=== PATIENT | female | born 1950 | race Caucasian/White ===

== ENCOUNTER 2016-06-09 08:16 | Inpatient (IN) | payer MEDICARE, OTHER ==
--- NOTE | 2016-06-08 13:59 | HP ---
DATE OF CLINIC: 05/27/2016 JAYNA REYES : 1950 PLANNED PROCEDURE: Left Total Knee Arthroplasty DATE OF SURGERY: June 09, 2016 SURGEON: Derrick Mckenzie M.D. PCP: Italo Tanner M.D. HISTORY OF PRESENT ILLNESS Jayna Reyes is a 65 year old female. * Medication list reviewed with patient allergy list reviewed with patient. * Has not tried NSAIDS * Has not tried Physical Therapy * Has not tried Injections Mrs. Reyes is in today pre-operatively for her upcoming left total knee arthroplasty with Dr. Mckenzie on 06/09/16. Patient presents in good spirits and is prepared to proceed. She states she continues to have urinary tract symptoms despite completing a 5 day course of Bactrim. She denies fever or constitutional symptoms. She also states she takes 2 Tums 3-4 weekly in the evening for acid reflux. No other recent illness or change in health. No prior surgical complications. Her previous consult with Dr. Mckenzie follows: 65-year-old female here preoperatively with respect to chronic atraumatic left knee pain over the last 15 years. She has intermittent severity of symptomatology. Pain is primarily weightbearing, although has rest discomfort, no radicular pain, no hip pain, no problems with the contralateral side. She feels very limited with respect to activities and is interested in consideration of treatment algorithm. Comorbidities include insulin dependent diabetes as well as a history of hypertension and a remote history of gout. We discussed both operative and non-operative management, including risks and benefits of both and she has elected to proceed with surgical intervention. She presents today preoperatively. She has had no recent illnesses. CURRENT MEDICATION * Adult Aspirin EC Low Strength 81 MG Tablet Delayed Release 1 once a day 0 days, 0 refills * Invokana 100 MG Tablet 1 once a day 0 days, 0 refills * Lantus 100 UNIT/ML Solution as directed 90 days, 0 refills * Lisinopril 5 MG Tablet 1 once a day 0 days, 0 refills * Lovastatin 40 MG Tablet 1 once a day 0 days, 0 refills * Melatonin 5 MG Tablet as needed 0 days, 0 refills * MetFORMIN HCl 1000 MG Tablet 1 twice a day 90 days, 0 refills * Tums 500 MG Tablet Chewable as directed 0 days, 0 refills PAST MEDICAL/SURGICAL HISTORY Reported: Shoulder Arthroscopy Right 01/22/2009 Subacromial decompression with bicep debridement by Dr. Derrick Vega at [facility]. Medical: Cholesterol problems. Stomach problems ulcers at age 12, joint problems Arthritis, a fracture left arm and broke foot, Reported numbness, Reported tingling, Diabetes Mellitus, history of Arthritis knee, Gout many years ago, Hypertension, and Fainting. Surgical / Procedural: Appendix removed 50 years ago Eye Surgery Cataract-Bilateral. Tests: Blood pressure was high. Diagnoses: Diabetes mellitus. Anemia [id number]. Surgical: * Surgery of the pharynx, adenoids, and tonsils Retina 2006; hand tendon 1968 SOCIAL HISTORY Behavioral: Quit smoking stopped 35 years ago after smoking 1 pack a day for 5 years. Smoking status: Former smoker. Work: Occupation retired. ALLERGIES * No Known Allergies REVIEW OF SYSTEMS Systemic: No fever and no recent weight change. Head: No head symptoms. Cardiovascular: No cardiovascular symptoms. Pulmonary: No pulmonary symptoms. Gastrointestinal: Gastrointestinal symptoms GERD. : urgency, bloating, bladder discomfort. Psychological: No psychological symptoms. Skin: No skin lesions and no rash. PHYSICAL FINDINGS * Vitals taken 05/27/2016 01:29 pm BP-Sitting L 130/70 mmHg 100 - 120/56 - 80 BP Cuff Size Regular Pulse Rate-Sitting 92 bpm 50 - 100 Temp-Oral 97.3 F 96 - 101 Height 65.75 in 59 - 68 Weight 178 lbs 96 - 178 Body Mass Index 28.9 kg/m2 Body Surface Area 1.90 m2 Pain Level 2 Ears, Nose, Throat: * ENT: normal. Lungs: * Clear to auscultation. Cardiovascular: Heart Rate and Rhythm: * Normal. Abdomen: * Normal. Neurological: Motor: * Dominant Hand = Right Hand. Patient is a well-developed, well-nourished female in no acute distress, normal-appearing mood and affect. She has a stiff-legged, antalgic gait favoring the left side holding it in slight flexion. Left knee exam shows skin integrity to be well-preserved, no wounds, rashes or lesions. She does have mild diffuse swelling, no gross effusion. Motion actively is 5-95, passively 0-100 degrees with pain at extremes. On standing she has genu varum and has 1+ laxity to varus stress in 30 degrees of flexion. She is NT laterally, minimal discomfort on patellar compression with no crepitation. She has a negative drawer. She is tender over the anteromedial proximal tibia. Calf is soft and NT. Distal light touch sensation and motor function are grossly intact and symmetric with the contralateral side. Pulses are palpable. Gentle rotation of the hip is non-irritable. Sitting SLR is negative. Contralateral knee shows non-irritable motion, 0-115 degrees with overall reasonable alignment and no focal periarticular tenderness. TESTS Radiographs, 4 views of the left knee, from today show marked varus deformity with complete medial joint space loss, erosion of the proximal medial tibia, periarticular sclerosis and large medial osteophytes. Significant patellofemoral degenerative changes noted as well with large spur off the proximal trochlea. ASSESSMENT * Localized primary osteoarthritis of the left knee Advanced DJD, left knee, with varus deformity. PREVIOUS TESTS * Test: URINALYSIS WITH MICROSCOPIC Report Date: 05/20/2016 EPITHELIAL CELL 0-1 WBC 50-60 GLUCOSE 2+ BACTERIA 1+ PH,URINE 5.0 SPEC. GRAVITY 1.020 KETONE NEGATIVE NITRITE NEGATIVE RBC 0-1 BLOOD TRACE BILIRUBIN NEGATIVE APPEARANCE HAZY PROTEIN TRACE COLOR YELLOW LEUK ESTERASE 2+ UROBILINOGEN NORMAL * Test: CBC WITH DIFF Report Date: 05/20/2016 WBC 7.3 10*3/mL BASOPHIL 0.8 % RBC 4.72 10*6/uL NEUTROPHILS 61.6 % MCH 29.4 pg MCHC 33.3 g/dL RDW 12.4 % MCV 88.3 fL PLATELET COUNT 162 10*3/mL IMM NEUT % 0.3 % IMM NEUT # 0.0 10*3/mL MONOCYTES 6.1 % EOSINOPHIL 2.6 % HCT 41.7 % HGB 13.9 g/L LYMPHOCYTE 28.6 % ANC 4.5 10*3/mL * Test: PROTHROMBIN TIME Report Date: 05/20/2016 PROTIME 10.5 s INR 1.00 * Test: PARTIAL THROMBOPLASTIN TIME Report Date: 05/20/2016 APTT 22.6 s Low * Test: COMPREHENSIVE METABOLIC PANEL Report Date: 05/20/2016 ALT/SGPT 16 U/L ALBUMIN 4.2 g/dL ALB/GLOB RATIO 1.5 BUN 17 mg/dL BUN/CREAT RATIO 21 High CALCIUM 9.3 mg/dL GLUCOSE 167 mg/dL High CREATININE 0.8 mg/dL SODIUM 138 meq/L POTASSIUM 4.5 meq/L CHLORIDE 104 meq/L CARBON DIOXIDE 26 meq/L ANION GAP 13 meq/L TOT PROTEIN 7.0 g/dL GLOBULIN 2.8 g/dL BILI,TOTAL 0.4 mg/dL AST/SGOT 17 U/L ALK PHOSPHATASE 47 U/L GFR 72 * Test: LIPID PROFILE Report Date: 05/20/2016 HDL CHOLESTEROL 44 mg/dL VLDL CHOL 42 mg/dL High CHOLESTEROL 163 mg/dL TRIGLYCERIDES 210 mg/dL High LDL CHOLESTEROL 77 mg/dL RISK RATIO 3.7 * Test: GLYCOHEMOGLOBIN Report Date: 05/20/2016 HGBA1C 8.2 % High * Test: URINE CULTURE Report Date: 05/25/2016 URINE CULTURE 50,000 CFU/ML STAPHYLOCOCCUS EPIDERMIDIS (COAGULASE NEGATIVE * Test: MRSA SCREEN Report Date: 05/21/2016 MRSA SCREEN NEGATIVE * Test: MSSA SCREEN Report Date: 05/21/2016 MSSA SCREEN NEGATIVE FOR STAPHYLOCOCCUS AUREUS * Test: GRAM POS SENSITIVITIES (JUAN LUIS) Report Date: 05/25/2016 GRAM POS SENSITIVITIES (JUAN LUIS) STAPH) R THERAPY * Patient fall risk screen negative. * Patient eligible for fall risk assessment. * Patient received fall risk assessment. PLAN * Unilateral primary osteoarthritis, left knee Physical Therapy: PT [facility] [phone] * OTHER Macrobid 100 MG CAPS, 1 twice a day, 7 days, 0 refills * Aftercare following joint replacement surgery OxyCODONE HCl 5 MG TABS, 1or 2 tablets every 4 to 6 hours as needed, 5 days, 0 refills OxyCONTIN 10 MG T12A, 1 twice a day, 10 days, 0 refills TraMADol HCl 50 MG TABS, four times a day, 10 days, 0 refills CeleBREX 100 MG CAPS, 1 twice a day, 10 days, 0 refills * Total knee arthroplasty -Left Discussed with patient in detail the limitations, expectations as well as risks and possible complications of surgery including, but not limited to wound problems or infection, neurovascular injury, continued knee pain or dysfunction, including the possibility of prosthetic wear or failure over time that may require additional operative or non-operative treatment. Patient also realizes the perioperative risks including risks associated with anesthesia and would like to proceed. A full PAR conference was held, questions and concerns addressed and informed consent was obtained. Patient will be sent from my office for completion of the preoperative workup. Macrobid 100mg BID x 7 days for UTI [place] consult for perioperative medical management. Patient will use aspirin 325mg daily for 6 weeks postoperatively for DVT prophylaxis. Patient would like to perform their postop PT at [facility] with left total knee arthroplasty protocol. CARE TEAM Italo Tanner MD Family Practice CC: Italo Tanner MD [facility] RS/sg
[2016-06-09] MEDS ORDERED: CEFAZOLIN SODIUM 2 GRAM DUPLEX 50 ML IV PRN (10:45)
[2016-06-09] MEDS ORDERED: FAMOTIDINE 20 MG TABLET PO ONE (10:45)
[2016-06-09] MEDS ORDERED: TRANEXAMIC ACID 1,000 MG in SODIUM CHLORIDE 0.9% 100 ML IV PRN (10:45)
[2016-06-09] MEDS ORDERED: POLYMYXIN B SULFATE 500,000 UNITS, BACITRACIN 25,000 UNITS in SODIUM CHLORIDE 3 L IRRIG... IR PRN (10:45)
[2016-06-09] MEDS ORDERED: BUPIVACAINE 0.25% (MDV) 20 ML in SODIUM CHLORIDE 0.9% FLUSH 20 ML IF PRN (10:45)
[2016-06-09] MEDS ORDERED: CELECOXIB 200 MG CAPSULE PO ONE (10:45)
[2016-06-09] MEDS ORDERED: GABAPENTIN 600 MG TABLET PO ONE (10:45)
[2016-06-09] MEDS ORDERED: CLONIDINE HCL 0.1 MG/24 HR (7 DAY PATCH) TD SCH (10:45)
[2016-06-09] MEDS ORDERED: TRAMADOL HCL 50 MG TABLET PO ONE (10:45)
[2016-06-09] MEDS ORDERED: ONDANSETRON 4 MG/2ML 2 ML VIAL IV ONE (10:45)
[2016-06-09] MEDS ORDERED: OXYCODONE HCL 10 MG TAB.SR PO ONE ×2 (10:45→11:12)
[2016-06-09] MEDS ORDERED: BUPIVACAINE 0.25% (MDV) 24 ML, MORPHINE SULFATE 8 MG, EPINEPHRINE 0.3 MG in SODIUM CHLO... IF PRN (10:45)
[2016-06-09] MEDS ORDERED: PROPOFOL 40 ML IV ONE (10:56)
[2016-06-09] MEDS ORDERED: LIDOCAINE 2% (PRES FREE) 5 ML VIAL ONE (10:56)
[2016-06-09] MEDS ORDERED: FENTANYL 100 MCG/2 ML VIAL ONE (11:00)
[2016-06-09] MEDS ORDERED: MIDAZOLAM HCL 5 MG/5 ML VIAL ONE (11:01)
[2016-06-09] MEDS ORDERED: TRAMADOL HCL 50 MG TABLET ONE (11:12)
[2016-06-09] MEDS ORDERED: ONDANSETRON 4 MG/2ML 2 ML VIAL ONE (11:12)
[2016-06-09] MEDS ORDERED: CELECOXIB 200 MG CAPSULE ONE (11:13)
[2016-06-09] MEDS ORDERED: CLONIDINE HCL 0.1 MG/24 HR (7 DAY PATCH) TD ONE (11:13)
[2016-06-09] MEDS ORDERED: IV START KIT ONE (11:13)
[2016-06-09] MEDS ORDERED: GABAPENTIN 600 MG TABLET ONE (11:13)
[2016-06-09] MEDS ORDERED: FAMOTIDINE 20 MG TABLET ONE (11:13)
[2016-06-09] MEDS ORDERED: SODIUM CHLORIDE 0.9% 1,000 ML ONE (11:14)
[2016-06-09] MEDS ORDERED: CEFAZOLIN SODIUM 2 GRAM PREMIX 100 ML IV ONE (11:21)
[2016-06-09] MEDS ORDERED: SPINAL PROCEDURAL TRAY 1 EACH ONE (12:04)
[2016-06-09] MEDS ORDERED: NERVE BLOCK PROCEDURAL TRAY 1 EACH ONE (12:04)
[2016-06-09] MEDS ORDERED: ROPIVACAINE 0.5% 30 ML VIAL ONE (12:04)
[2016-06-09] MEDS ORDERED: ATROPINE SULFATE 0.4 MG/1 ML VIAL IV PRN (13:57)
[2016-06-09] MEDS ORDERED: HYDRALAZINE HCL 20 MG/1 ML VIAL IV PRN (13:57)
[2016-06-09] MEDS ORDERED: FENTANYL 100 MCG/2 ML VIAL IV PRN (13:57)
[2016-06-09] MEDS ORDERED: LABETALOL HCL 5 MG/ML 20ML VIAL IV PRN (13:57)
[2016-06-09] MEDS ORDERED: MEPERIDINE 25 MG/ML SYRINGE IV PRN (13:57)
[2016-06-09] MEDS ORDERED: PROMETHAZINE HCL 25 MG/ML VIAL IM PRN (13:57)
[2016-06-09] MEDS ORDERED: HYDROMORPHONE HCL 1 MG/ML SYRINGE IV PRN (13:57)
[2016-06-09] MEDS ORDERED: NALOXONE HCL 0.4 MG/ML VIAL IV PRN (13:57)
[2016-06-09] MEDS ORDERED: ONDANSETRON 4 MG/2ML 2 ML VIAL IV PRN ×2 (13:57→16:40)
[2016-06-09] MEDS ORDERED: PHENYLEPHRINE 10 MG/1 ML (1%) VIAL ONE (13:58)
[2016-06-09] MEDS ORDERED: LACTATED RINGERS 1,000 ML IV SCH (14:00)
[2016-06-09] MEDS ORDERED: ON-Q PUMP/ROPIVACAINE 0.2% 450 ML in PREMIX BAG 1 EACH NB PRN ×2 (14:01→16:40)
[2016-06-09] MEDS ORDERED: ON-Q PUMP/ROPIVACAINE 0.2% 450 ML ONE (15:17)
--- NOTE | 2016-06-09 16:05 | PCMBPN ---
Brief Post Op Note: Date of Procedure: 06/09/16 ] Preoperative Diagnosis: left knee DJD Postoperative Diagnosis: 1. [Same] Procedure: left TKA Surgeon: Derrick Mckenzie MD Assist:Javed (JOSE) Anesthesia: spinal/add block (Steve) Condition: stable to PAR Complications: none IV Fluids: 1700 mls Urine Output: 250 mLs Estimated Blood Loss: 150 mLs Tourniquet Time: ~60 Specimens: [N/A] Implants: Legion Drains: none
[2016-06-09] MEDS ORDERED: KETOROLAC TROMETHAMINE 30 MG/ML 1 ML VIAL IV PRN (16:40)
[2016-06-09] MEDS ORDERED: HYDROMORPHONE HCL 0.5 MG/0.5 ML SYRINGE IV PRN (16:40)
[2016-06-09] MEDS ORDERED: CALCIUM CARBONATE 500 MG TAB.CHEW PO PRN (16:40)
--- NOTE | 2016-06-09 16:56 | RAD ---
KNEE LEFT 1 OR 2 VIEWS COMPARISON: Left lower study bone length study, 04/03/2016 HISTORY: Osteoarthritis left knee after left total knee arthroplasty. FINDINGS: Views: Left knee AP and crosstable lateral Bones: Normal. Joints: Satisfactory appearance of the left total knee arthroplasty. Soft tissues: Normal. IMPRESSION: Satisfactory appearance of the left total knee arthroplasty.
[2016-06-09 17:10] VITALS: BMI 29.5
[2016-06-09] MEDS ORDERED: PUMP TUBING ONE (17:27)
[2016-06-09] MEDS: NS/Potassium Chlor 20 mEq 1,000 ML IV SCH (17:32)
[2016-06-09] MEDS: CEFAZOLIN SODIUM 1 GRAM PREMIX 1 G in Premix (D5W) 50 ml 1 EACH IV SCH (21:15)
[2016-06-09] MEDS ORDERED: TRAMADOL HCL 50 MG TABLET PO PRN (23:00)
[2016-06-09] MEDS: DOCUSATE SODIUM 100 MG CAPSULE PO SCH (23:08)
[2016-06-09] MEDS: ASCORBIC ACID 500 MG TABLET PO SCH (23:08)
[2016-06-09] MEDS: ACETAMINOPHEN 500 MG TABLET PO SCH (23:09)
[2016-06-10] MEDS: NS/Potassium Chlor 20 mEq 1,000 ML IV SCH ×2 (01:24→10:10)
[2016-06-10] MEDS: ACETAMINOPHEN 500 MG TABLET PO SCH ×4 (05:05→22:26)
[2016-06-10] MEDS: CEFAZOLIN SODIUM 1 GRAM PREMIX 1 G in Premix (D5W) 50 ml 1 EACH IV SCH (05:05)
[2016-06-10 06:02] LABS: HEMATOCRIT 32.4 % (37.0-47.0); HEMOGLOBIN 10.6 gm/l (12.0-16.0); MEAN CELL VOLUME 88.8 fl (81.0-99.0); MEAN CORPUSCULAR HGB CONC 32.7 g/dl (33.0-37.0); RED CELL DISTRIBUTION WIDTH 12.4 % (11.5-14.5)
[2016-06-10 06:26] LABS: CALCIUM 7.9 mg/dL (8.6-10.3)
[2016-06-10] MEDS: INSULIN ASPART (DOSE) 100 UNITS/1 ML SUB-Q PRN ×3 (07:43→17:09)
[2016-06-10] MEDS: MULTIVITAMINS 1 TAB TABLET PO SCH (08:49)
[2016-06-10] MEDS: DOCUSATE SODIUM 100 MG CAPSULE PO SCH ×2 (08:49→20:25)
[2016-06-10] MEDS: ASCORBIC ACID 500 MG TABLET PO SCH ×2 (08:50→20:25)
[2016-06-10] MEDS: CELECOXIB 200 MG CAPSULE PO SCH (08:53)
[2016-06-10] MEDS: LISINOPRIL 5 MG TABLET PO SCH (08:53)
[2016-06-10] MEDS: ASPIRIN (ENTERIC COATED) 325 MG TABLET.EC PO SCH (08:53)
--- NOTE | 2016-06-10 08:59 | PDOC43 ---
- Subjective Findings: Ortho POD 1 L TKA Patient awake, A and O times 4 this am and in good spirits. C/O mild nausea, no emesis. No solid food since surgery but tolerating PO liquids. Denies CP/SOB. Pain is well controlled. No ambulation yet. Subjective: Reports Pain Tolerable, Denies Chest Pain, Denies Shortness of Breath, Denies Vomiting, Denies Fever - Objective Vital Signs Temperature 98.0 F 06/10/16 07:13 Pulse Rate 77 06/10/16 07:13 Respiratory Rate 16 06/10/16 07:13 Blood Pressure 120/56 06/10/16 07:13 O2 Saturation by Pulse Oximetry 97 06/10/16 07:13 Oxygen Delivery Method Room Air Oxygen Flow Rate 0 Laboratory 06/10/16 05:30 06/10/16 05:30 06/10/16 06/10/16 06/09/16 07:28 05:30 20:07 RBC 3.65 L MCHC 32.7 L POC Capillary Glucose 168 H 140 H Calcium 7.9 L 06/09/16 06/09/16 16:18 11:35 RBC MCHC POC Capillary Glucose 135 H 165 H Calcium Active Medication Orders Category Date Time Status Acetaminophen [Tylenol] Med 06/09/16 22:30 Active 1,000 mg PO Q6H Ascorbic Acid [Vitamin C] Med 06/09/16 21:00 Active 500 mg PO BID Aspirin (Enteric Coated) [Ecotrin] Med 06/10/16 09:00 Active 325 mg PO DAILY Bisacodyl [Dulcolax] Med 06/12/16 15:57 Active 10 mg [place] DAILY PRN Calcium Carbonate [Tums] Med 06/09/16 16:40 Active 1,000 - 2,000 mg PO Q2H PRN Celecoxib [Celebrex] Med 06/10/16 09:00 Active 200 mg PO DAILY Docusate Sodium [Colace] Med 06/09/16 21:00 Active 100 mg PO BID Hydromorphone HCl [Dilaudid] Med 06/09/16 16:40 Active 0.5 mg IV Q1H PRN Insulin Aspart (Dose) [Novolog (Dose)] Med 06/09/16 23:20 Active See Protocol SUB-Q WM/BEDTIME PRN Insulin Glargine (Dose) [Lantus (Dose)] Med 06/10/16 20:00 Active 17 units SUB-Q QPM Ketorolac Tromethamine [Toradol] Med 06/09/16 16:40 Active 30 mg IV Q6H PRN Lisinopril [Prinivil] Med 06/10/16 09:00 Active 5 mg PO QAM Magnesium Hydroxide [Milk of Magnesia] Med 06/10/16 15:57 Active 30 ml PO DAILY PRN Multivitamins [One-A-Day] Med 06/10/16 09:00 Active 1 tab PO DAILY NS/Potassium Chlor 20 mEq 1,000 ml Med 06/09/16 16:40 Active IV 125 mls/hr On-Q Pump/Ropivacaine 0.2% 450 ml Med 06/09/16 16:40 Active Premix Bag [Premix Fluid] 1 each NB Q50H Ondansetron 4 mg/2ml Vial [Zofran] Med 06/09/16 16:40 Active 4 - 6 mg IV Q6H PRN Oxycodone HCl [Roxicodone] Med 06/09/16 16:40 Active 5 - 10 mg PO Q4H PRN Remove Patch Med 06/10/16 15:57 Once 1 each TD X1 ONE Sodium Chloride 0.9% Flush [Normal Saline 10ml Flush] Med 06/09/16 16:40 Active 10 - 50 ml IV PRN PRN Sodium Chloride 0.9% Flush [Normal Saline 10ml Flush] Med 06/09/16 17:00 Active 10 ml IV Q8HR Tramadol HCl [Ultram] Med 06/09/16 23:00 Active 50 mg PO Q6H PRN Intake and Output 06/08/16 06/09/16 06/10/16 23:59 23:59 23:59 Intake Total 1881 Output Total 550 Balance 1331 Neurological: No Normal Gait (ambulating with a walker post L TKA) Peripheral Pulses: Left Posterior Tibialis: 1+, Left Dorsalis Pedis: 1+ - Left Lower Extremity Incision: Anastacio Intact (none), No Dressing Saturated, No Shadow Drainage, No Drainage, No Erythema, No Rash Motor: Extensor Hallucis Longus: 5/5, Tibialis Anterior: 5/5, Gastrocnemius: 4/5 , Peroneals: 5/5, Quadriceps: 4/5 Gross Sensation to Light Touch: Present: Deep Peroneal Nerve, Superficial Peroneal Nerve, Medial Plantar Nerve, Lateral Plantar Nerve, Sural Nerve, Saphenous Nerve Motion: Supine AROM: knee flexion to 40, SLR without assist. Ankle full AROM. - Problems (1) Status post total left knee replacement Status: AcuteAssessment/Plan: Ortho POD 1 L TKA, patient doing well, has mild nausea. 1. Anticoagulation with ASA 325mg daily for 6 weeks, pneumatic compression, TEDS , mobility. 2. Pain management as written, fem nerve cath, call for modifications. 3. Nausea: presently use medications as written prn, call for modifications. 4. PT/OT BID L TKA protocol WBAT. 5. Encourage bed and breathing exercises q hour when awake.
[2016-06-10] MEDS ORDERED: REMOVE PATCH 1 EACH UNIT TD SCH (10:45)
[2016-06-10] MEDS ORDERED: MAGNESIUM HYDROXIDE 30 ML UDCUP PO PRN (15:57)
[2016-06-10] MEDS ORDERED: REMOVE PATCH 1 EACH UNIT TD ONE (15:57)
--- NOTE | 2016-06-10 19:53 | CONS ---
JAYNA ANDREWS [id number] IDENTIFYING DATA: A 65-year-old female. DATE OF : 1950 CHIEF COMPLAINT: Knee pain. REASON FOR CONSULTATION: This is a consult note for Dr. Mckenzie. The patient underwent a left TKA on 06/09/2016. Consult is for medical management of her chronic medical conditions. HISTORY OF PRESENT ILLNESS: The patient has chronic left knee pain and underwent a left TKA yesterday. Currently she is doing well and has no complaints. Her postop nausea and feeling out of it has resolved. Her medical conditions have been stable. PAST MEDICAL HISTORY: Includes: 1. Diabetes. 2. Hyperlipidemia. REVIEW OF SYSTEMS: General - no fevers or chills. HEENT - no congestion or throat pain. Cardiovascular - no chest pain or pressure. Respiratory - no difficulty in breathing or cough. GI - nausea has resolved. No vomiting or abdominal pain. - no difficulty with urination. Currently she has a Mccormick in. Musculoskeletal - knee pain. Neurologic - no numbness, tingling, lightheadedness or dizziness. MEDICATIONS: Include: 1. Metformin. 2. Melatonin. 3. Lovastatin. 4. Lisinopril. 5. Lantus 17 units sub-Q nightly. 6. Invokana. 7. Aspirin. ALLERGIES: None. PAST MEDICAL HISTORY: Includes: 1. Hypertension. 2. Diabetes. PAST SURGICAL HISTORY: Includes: 1. Appendectomy. 2. Bilateral cataracts. 3. Tonsillectomy. 4. Hand surgery. 5. Shoulder arthroscopy in 2008. FAMILY MEDICAL HISTORY: Strong family medical history of diabetes. Father with emphysema. SOCIAL HISTORY: She quit smoking 35 years ago. 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 PHYSICAL EXAMINATION: VITAL SIGNS: Temperature 98.0. Heart rate 86. Blood pressure 119/58. She is saturating 100% on room air. GENERAL: She is alert and oriented, in no distress. HEENT: Normocephalic, atraumatic. No tenderness to palpation. Mucous membranes are moist. Pupils are equal, round and reactive. Extraocular muscles are intact. No scleral icterus or conjunctival injection. NECK: Supple. Trachea midline. CARDIOVASCULAR: Regular. Positive S1, S2. Palpable pulses bilaterally radially. RESPIRATORY: Clear to auscultation bilaterally. No rhonchi or wheezing. ABDOMEN: Soft and nontender. No distention. No rebound or guarding. MUSCULOSKELETAL: Moving upper extremities without difficulty. Nontender. Left lower extremity still with ice pack on. LABORATORY STUDIES: Sodium 134, potassium 4.4, chloride 104, carbon dioxide 25, BUN of 22, creatinine 0.8, glucose 168 and calcium 7.9. White blood count of 8.2, hemoglobin of 10.6, hematocrit of 32.4 and a platelet count of 138. ASSESSMENT/PLAN: This is a 65-year-old female undergoing left TKA, with diabetes, doing well. 1. Left TKA, managed per ortho. 2. Diabetes. Elevated blood sugars here. Insulin as needed. 3. Hyperlipidemia. Continue her home medications.
[2016-06-10] MEDS ORDERED: INSULIN GLARGINE (DOSE) 100 UNITS/ML UNIT SUB-Q SCH (20:00)
[2016-06-10] MEDS: OXYCODONE HCL 5 MG TABLET PO PRN (22:26)
[2016-06-11] MEDS: OXYCODONE HCL 5 MG TABLET PO PRN ×3 (02:06→08:59)
[2016-06-11] MEDS: ACETAMINOPHEN 500 MG TABLET PO SCH ×2 (03:48→10:17)
[2016-06-11 05:54] LABS: HEMATOCRIT 31.6 % (37.0-47.0); HEMOGLOBIN 10.7 gm/l (12.0-16.0)
[2016-06-11] MEDS: INSULIN ASPART (DOSE) 100 UNITS/1 ML SUB-Q PRN (07:21)
[2016-06-11 07:53] VITALS: BP 104/60
[2016-06-11] MEDS ORDERED: HYDROXYZINE PAMOATE 25 MG CAPSULE PO PRN (08:47)
[2016-06-11] MEDS: LISINOPRIL 5 MG TABLET PO SCH (08:58)
[2016-06-11] MEDS: ASPIRIN (ENTERIC COATED) 325 MG TABLET.EC PO SCH (08:58)
[2016-06-11] MEDS: DOCUSATE SODIUM 100 MG CAPSULE PO SCH (08:58)
[2016-06-11] MEDS: MULTIVITAMINS 1 TAB TABLET PO SCH (08:59)
[2016-06-11] MEDS: CELECOXIB 200 MG CAPSULE PO SCH (08:59)
[2016-06-11] MEDS: ASCORBIC ACID 500 MG TABLET PO SCH (08:59)
--- NOTE | 2016-06-11 09:13 | PDOC43 ---
- Subjective Findings: Ortho POD 2 L TKA Patient awake, A and O times 3 this am. C/O some light nausea with food but not as bad as yesterday. Pain is well controlled. Good progress with day 1 PT. No other c/o. Denies CP/SOB. Taking a light solid ADA diet and positive flatus. Subjective: Denies Chest Pain, Denies Shortness of Breath, Denies Vomiting, Denies Fever - Objective Vital Signs Temperature 98.2 F 06/11/16 07:51 Pulse Rate 83 06/11/16 07:51 Respiratory Rate 16 06/11/16 07:51 Blood Pressure 104/60 06/11/16 07:51 O2 Saturation by Pulse Oximetry 97 06/11/16 07:51 Oxygen Delivery Method Room Air Oxygen Flow Rate 0 Laboratory 06/11/16 05:30 06/10/16 05:30 06/10/16 06/10/16 06/10/16 20:24 17:01 12:22 POC Capillary Glucose 174 H 183 H 184 H Active Medication Orders Category Date Time Status Acetaminophen [Tylenol] Med 06/09/16 22:30 Active 1,000 mg PO Q6H Ascorbic Acid [Vitamin C] Med 06/09/16 21:00 Active 500 mg PO BID Aspirin (Enteric Coated) [Ecotrin] Med 06/10/16 09:00 Active 325 mg PO DAILY Bisacodyl [Dulcolax] Med 06/12/16 15:57 Active 10 mg [place] DAILY PRN Calcium Carbonate [Tums] Med 06/09/16 16:40 Active 1,000 - 2,000 mg PO Q2H PRN Celecoxib [Celebrex] Med 06/10/16 09:00 Active 200 mg PO DAILY Docusate Sodium [Colace] Med 06/09/16 21:00 Active 100 mg PO BID Hydromorphone HCl [Dilaudid] Med 06/09/16 16:40 Active 0.5 mg IV Q1H PRN Hydroxyzine Pamoate [Vistaril] Med 06/11/16 08:47 Active 25 mg PO Q4-6H PRN Insulin Aspart (Dose) [Novolog (Dose)] Med 06/09/16 23:20 Active See Protocol SUB-Q WM/BEDTIME PRN Insulin Glargine (Dose) [Lantus (Dose)] Med 06/10/16 20:00 Active 17 units SUB-Q QPM Lisinopril [Prinivil] Med 06/10/16 09:00 Active 5 mg PO QAM Magnesium Hydroxide [Milk of Magnesia] Med 06/10/16 15:57 Active 30 ml PO DAILY PRN Multivitamins [One-A-Day] Med 06/10/16 09:00 Active 1 tab PO DAILY On-Q Pump/Ropivacaine 0.2% 450 ml Med 06/09/16 16:40 Active Premix Bag [Premix Fluid] 1 each NB Q50H Ondansetron 4 mg/2ml Vial [Zofran] Med 06/09/16 16:40 Active 4 - 6 mg IV Q6H PRN Oxycodone HCl [Roxicodone] Med 06/09/16 16:40 Active 5 - 10 mg PO Q4H PRN Sodium Chloride 0.9% Flush [Normal Saline 10ml Flush] Med 06/09/16 16:40 Active 10 - 50 ml IV PRN PRN Sodium Chloride 0.9% Flush [Normal Saline 10ml Flush] Med 06/09/16 17:00 Active 10 ml IV Q8HR Tramadol HCl [Ultram] Med 06/09/16 23:00 Active 50 mg PO Q6H PRN Intake and Output 06/09/16 06/10/16 06/11/16 23:59 23:59 23:59 Intake Total 4211 1100 Output Total 2975 800 Balance 1236 300 Neurological: No Normal Gait (ambulating with walker post L TKA) Peripheral Pulses: Left Posterior Tibialis: 1+, Left Dorsalis Pedis: 1+ - Left Lower Extremity Incision: Well Approximated (with a sub Q closure, skin glue and mesh, moderate knee edema, thigh soft but moderately TTP. Calf SNT.), No Dressing Saturated, No Shadow Drainage, No Drainage, No Erythema, No Rash Motor: Extensor Hallucis Longus: 5/5, Tibialis Anterior: 5/5, Gastrocnemius: 4/5 , Peroneals: 5/5, Quadriceps: 4/5 Gross Sensation to Light Touch: Present: Deep Peroneal Nerve, Superficial Peroneal Nerve, Medial Plantar Nerve, Lateral Plantar Nerve, Sural Nerve, Saphenous Nerve Motion: Supine AROM L Knee 5-50 with passive improvement. SLR without assist. Ankle full AROM. - Problems (1) Status post total left knee replacement Status: AcuteAssessment/Plan: Ortho POD 2 L TKA, patient doing well. 1. Continue: Anticoagulation with ASA 325mg daily for 6 weeks, pneumatic compression, TEDS, mobility. 2. Continue: Pain management as written, fem nerve cath, call for modifications. 3. Continue: Nausea: add vistaril PO 25mg 1-2 q 4-6 hrs prn, call for modifications. 4. Continue: PT/OT BID L TKA protocol WBAT. 5. Continue: Encourage bed and breathing exercises q hour when awake. 6. Discharge home today following therapies if meets criteria. 7. Follow-up with Dr. Mckenzie as scheduled.
--- NOTE | 2016-06-11 09:37 | PDOC43 ---
- Subjective Chief Complaint: LTKA Patient awake and alert, she is nervous for knee pain especially with increasing her activity levels and removal of nerve block. Tolerating diet, has nausea in the morning. Denies abdominal pain, shortness of breath, dizziness. Subjective: Reports Pain Tolerable, Reports Tolerating Diet Well, Reports Adequate Oral Intake, Reports Urinating Without Difficulty, Reports Nausea, Denies Shortness of Breath, Denies Cough, Denies Chest Pain, Denies Abdominal Pain, Denies Vomiting - Objective Vital Signs Temperature 98.2 F 06/11/16 07:51 Pulse Rate 83 06/11/16 07:51 Respiratory Rate 16 06/11/16 07:51 Blood Pressure 104/60 06/11/16 07:51 O2 Saturation by Pulse Oximetry 97 06/11/16 07:51 Oxygen Delivery Method Room Air Oxygen Flow Rate 0 Intake and Output 06/09/16 06/10/16 06/11/16 23:59 23:59 23:59 Intake Total 4211 1100 Output Total 2975 800 Balance 1236 300 General: Alert, Oriented x3, Cooperative, Other (obese), No Acute Distress HEENT: Atraumatic, PERRLA, EOMI, Mucous membr. moist/pink Lungs: Clear to Auscultation Bilaterally, Normal Air Movement Cardiovascular: Regular Rate and Rhythm, Normal S1, Normal S2 Abdomen: Soft, Non-Distended, No Rigid, No Tenderness, No Rebounding Extremities: No Cyanosis, No Edema, No Tenderness Neurological: Normal Speech Psych/Mental Status: Normal Mood Laboratory 06/11/16 05:30 06/10/16 05:30 06/10/16 06/10/16 06/10/16 20:24 17:01 12:22 POC Capillary Glucose 174 H 183 H 184 H Current Medications: Current meds reviewed in EMR. - Problems: Assessment/Plan (1) Status post total left knee replacement Status: AcuteAssessment/Plan: doing well, post-op day 2. Managed per orthopedics (2) DM type 2 (diabetes mellitus, type 2) Qualifiers: Diabetes mellitus complication status: without complication Diabetes mellitus intermediate insulin use: with salvage determiner use Qualifier Code: (E11.9) Type 2 diabetes mellitus without complications Status: ChronicAssessment/ Plan: blood sugars controlled, continue home medication use (3) HLD (hyperlipidemia) Qualifiers: Hyperlipidemia type: mixed hyperlipidemia Qualifier Code: (E78.2) Mixed hyperlipidemia Status: ChronicAssessment/Plan: stable
--- NOTE | 2016-06-11 14:25 | OP ---
JAYNA ANDREWS [id number] : 1950 DATE OF SURGERY: June 09, 2016 PREOPERATIVE DIAGNOSIS: Degenerative joint disease left knee POSTOPERATIVE DIAGNOSIS: Same PROCEDURE: Left Total Knee Arthroplasty COMPONENTS: Legion size 5 narrow posterior stabilized Oxinium cemented femoral component, size 3 cemented tibial base plate, 9mm high flexion cross-linked polyethylene articular insert, 35mm resurfacing patella. SURGEON: Derrick Mckenzie M.D. ASTRONOMY DEPARTMENT CHAIR: Javed RALPH) ANESTHESIA: Spinal plus adductor nerve block per Steve ESTIMATED BLOOD LOSS: 150 cc IV FLUID REPLACEMENT: per anesthesia, 1.7 liters crystalloid. URINE OUTPUT: 250 cc DRAINS: None TOURNIQUET TIME: Approximately 60 minutes COMPLICATIONS: None HISTORY: Briefly, patient is a 65-year-old female with clinical and radiographic evidence of advanced degenerative disease of their left knee. They have failed traditional non-operative management and desire elective total knee arthroplasty. For additional details, please refer to the previously dictated Preoperative History and Physical Examination. A PAR conference was held, questions and concerns were addressed, and informed consent was obtained. FINDINGS: Fixed flexion contracture and varus deformity, also fixed. She had significant tricompartmental hypertrophic changes most notably at the anterior femur, patella and medial compartment. She had full thickness chondral loss both medially and laterally with more wear medially. PROCEDURE: The patient was taken to the operating room after the placement of a spinal anesthetic and regional nerve block. They were placed supine on the operating room table, a tourniquet was applied to the proximal thigh and the left lower extremity was prepped and draped out in the usual sterile fashion. Preoperative IV antibiotics were given empirically. Intraoperative DVT prophylaxis consisted of contralateral foot pumps. Personal filtration suits were used as was a closed room environment. A WHO timeout was taken. Surgical site was identified and confirmed. The leg was then elevated and the tourniquet inflated after gravity exsanguination. This was released after initial exposure and not utilized again until cementation. Tranexamic acid was infiltrated over 10 minutes prior to incision, 1 gram dose per protocol. A similar 2nd dose was given at initiation of closure. With the knee flexed, an anteromedial incision was made from the level of the tibial tubercle to two centimeters proximal to the superior pole of the patella. A medial arthrotomy was performed with a mini-mid vastus approach. A medial subperiosteal proximal tibial release was performed and a portion of the anterior fat pad was excised to improve visualization. The supra-patellar pouch was raised subperiosteally. The anterior and posterior cruciate ligaments were excised as were the remaining portions of the anterior horns of the medial and lateral menisci. Minimally invasive instrumentation and philosophy were used throughout the procedure in an attempt to decrease the extent of soft tissue disruption/damage. Patient matched cutting blocks were also used as per our preoperative plan. The [employer] patient matched distal femoral cutting block was applied and secured to the bone. We confirmed that the alignment matched our preoperative plan and made the distal femoral cut. We confirmed the size of the femur and placed the appropriate 4-in-1 cutting block making our anterior and posterior condylar cuts followed by the chamfer cuts. Residual marginal osteophytes were removed. Attention was then directed to the tibia which was retracted anteriorly. Remaining meniscal tissue was excised. The [employer] patient matched tibial block was then positioned and secured to bone. Alignment was confirmed as per our preoperative plan and the proximal tibial cut made. The tibia was sized and we passed the 11 mm. punch. We then balanced the flexion and extension gaps by performing a limited posterior capsular release, particularly posteromedially. We confirmed hemostasis. We then completed the femoral preparation by reaming and chiseling the notch. Femoral and tibial trial components were placed. We were able to obtain full extension with nice roll back and good coronal plane alignment and stability. The patella tracked well and was prepared using the Chase patellar reaming system removing 9 mm. of bone. Osteophytes were removed prior to this with a rongeur and we performed a circumferential limited denervation using cautery. This was sized accordingly and punch holes were drilled. We marked our tibial rotation and removed the trial components after passing the cruciform tibial punch. The knee was then re-exsanguinated and the tourniquet inflated. Double antibiotic pulsatile lavage was used to irrigate the knee and clean the cancellous javier interstices which were then carefully dried. Periarticular injection was done at this point per protocol of the posterior capsule, posteromedial knee and synovium. Two doses of high viscosity, antibiotic impregnated polymethylmethacrylate were used to cement the tibial, femoral, and then patellar components. The knee was held in extension while the cement cured. All residual methacrylate was meticulously removed. Attention was then directed towards closure. We irrigated and the retinaculum was closed with a running #2 absorbable Strato-Fix suture. A second periarticular injection was done at this point per protocol. The repair was checked in maximum flexion. We then lightly irrigated the subcutaneous tissue and closed with interrupted 2-0 and 3-0 Vicryl Plus. The skin was then reapproximated with a subcuticular 4-0 Monocryl followed by Dermabond Prineo. A sterile compression dressing was applied. The patient was then transferred to their hospital bed and sent to the post anesthesia recovery room in stable condition. They tolerated the procedure well. Sponge, instrument, and needle count were correct. CC: Italo Tanner MD PT HAMLET Mckenzie
[2016-06-12] MEDS ORDERED: BISACODYL 10 MG SUP PR PRN (15:57)
--- NOTE | 2016-06-15 17:35 | DS ---
JAYNA ANDREWS [id number] : 1950 DATE OF ADMISSION: June 09, 2016 DATE OF DISCHARGE: June 11, 2016 DISCHARGE DIAGNOSES: Left knee degenerative joint disease. HOSPITAL PROCEDURES: Left total knee arthroplasty. SURGEON: Derrick Mckenzie M.D. BRIEF HISTORY: Patient is a 65-year-old female with both clinical and radiographic evidence of advanced DJD of their left knee. For the full history please see the chart note. BRIEF HOSPITAL COURSE: Patient was admitted on June 09, 2016. Dr. Derrick Mckenzie performed a left total knee arthroplasty. They were moved to the recovery room in stable condition. They were given 4 doses of antibiotic for empiric coverage. DVT prophylaxis consisted of aspirin 325 mg, pneumatic compression, OKSANA hose and mobility. PT was instituted postop day 1 with left total knee arthroplasty protocol, weightbearing as tolerated. Their incision site remained benign, their vital signs remained stable and they remained neurally and vascularly intact through the duration of the stay. They were discharged home on postop day 2 to continue their outpatient PT at [facility] with left total knee arthroplasty protocol, weightbearing as tolerated. DISCHARGE INSTRUCTIONS: 1. Keep the wound site clean. May shower with Aquacel dressing intact. Call office with any questions or concerns and f/u for your dressing change as scheduled 1 week postop. 2. Continue the use of OKSANA hose bilaterally. 3. Cooling unit 3-4 times daily for 30 minutes duration. 4. Outpatient PT at [facility] for left total knee arthroplasty protocol, weightbearing as tolerated. MEDICATIONS: 1. Patient is to resume normal preop medications. 2. Anti-coagulation will be with aspirin 325 mg daily for six weeks. 3. Pain management will be with OxyContin, 10mg every 12 hours x 10 days, Oxycodone, 5mg 1-2 every 4 hours prn for breakthrough pain, and Tramadol, 50mg every 6 hours prn pain. The patient also received Vistaril 25 mg one to two tablets every 4 to 6 hours for nausea. 4. Patient was also advised on utilization of a multi-vitamin with mineral daily as well as Vitamin C, 500mg daily for 1 month. 5. Patient encouraged to take an iron supplement in the form of ferrous sulfate, 325mg daily for 4 weeks. 6. Colace, 100mg, b.i.d. until regular bowel movement. FOLLOW-UP: Please return to the clinic as scheduled for your first scheduled postop check. Prior to that point in time please call with any questions or concerns. Job [id number] CC: Magaly Tanner M.D. PT Leta Mckenzie
== END 2016-06-11 11:05 | disposition home or self-care (01) | DRG 470 ==
LOC: OR 10:45 → MS 17:11
PROVIDERS: ADMIT Orthopaedic Surgery; ATTEND Orthopaedic Surgery
PROC: 0SRD0J9 Replacement of Left Knee Joint with Synthetic Substitute, Cemented, Open Approach (ICD-10-PCS; principal; 2016-06-09)
DX: M17.12 Unilateral primary osteoarthritis, left knee (principal); M21.162 Varus deformity, not elsewhere classified, left knee; R11.0 Nausea; E11.9 Type 2 diabetes mellitus without complications; E78.2 Mixed hyperlipidemia; K21.9 Gastro-esophageal reflux disease without esophagitis; I10 Essential (primary) hypertension; Z79.4 Long term (current) use of insulin; Z79.84 Long term (current) use of oral hypoglycemic drugs; Z87.891 Personal history of nicotine dependence